=== PATIENT | female | born 1970 | race Two or more races ===

== ENCOUNTER 2018-03-12 18:52 | Emergency (ER) | payer OTHER ==
[2018-03-12] MEDS ORDERED: TDAP ADULT 0.5 ML INJ (BOOSTRIX) IM ONE (19:04)
--- NOTE | 2018-03-12 19:04 | EDPHY ---
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 She has no sensation distally. Occurred shortly prior to arrival PHYSICAL EXAM (Prior to examination, patient consented to physical exam, hands were washed and my usual and customary physical exam procedures followed) 1) GENERAL: Well-developed, well-nourished, alert and oriented. Appears to be in no acute distress. 2) HEAD: Normocephalic 3) HEENT: sclera anicteric 4) LUNGS: Breathing comfortably. 5) SKIN: On the left index finger distal phalanx she has 2, 1 cm discrete transverse lacerations. No signs of infection. Negative kanavel. 6) MUSCULOSKELETAL: FDP FDS intact 7) NEUROLOGIC: No 2 point discrimination distally, no sensation distal. Smoking Status: Never smoked Constitutional: Initial Vital Signs Temperature (C) 36.7 C 03/12/18 18:56 Heart Rate 81 03/12/18 18:56 Respiratory Rate 16 03/12/18 18:56 Blood Pressure 144/96 H 03/12/18 18:56 O2 Sat (%) 96 03/12/18 18:56 O2 Delivery Mode Room Air Allergies/Adverse Reactions: acetaminophen [From Percocet] Allergy (Verified 03/12/18 18:56) oxycodone [From Percocet] Allergy (Verified 03/12/18 18:56) Home Medications: Medication Instructions Recorded Levothyroxine [Synthroid 50 mcg 50 mcg PO DAILY06 12/31/11 (RX)] MDM/Departure - MDM Procedures: Procedure: Laceration repair. I was requested by to perform wound closure I explained the indications, risks and benefits for both laceration repair and anesthetic administration. Verbal consent was obtained from the patient and parent. The laceration on the left index finger was anesthetized using 0.5% bupivicaine without epinephrine digital nerve block. After anesthetic administered the patient was observed for a period of time and had no apparent adverse effects. The wound was cleaned, prepped, draped in normal sterile fashion and explored to its base. No foreign body seen, no foreign bodies palpated. There were no deep structures involved. No tendon injury was identified. The wound was repaired with 3 simple interrupted 5 O Prolene suture. The wound repair was simple. The procedure was performed by myself. Patient has been informed that scarring will occur, although efforts have been made to minimize this. Medications Given: Discontinued Medications Diphtheria/Tetanus/Acell Pertussis (Boostrix) 0.5 ml IM .ONCE ONE Stop: 03/12/18 19:05 Last Admin: 03/12/18 19:21 Dose: 0.5 ml ED Course/Re-evaluation: Primary wound closure in the emergency department. She has no decreased sensation distally. Recommend follow up with work comp provider and also given hand surgery follow-up information. Usual he customary wound precautions and instructions provided. No signs of infection at this time. I saw this patient independently based on established practice protocols. Care of patient under supervision of secondary supervising physician Dr Saldaña . - Depart Disposition: Home, Routine, Self-Care Clinical Impression: Laceration of left index finger Qualifiers: Encounter type: initial encounter Damage to nail status: without damage Foreign body presence: without foreign body Qualified Code(s): S61.211A - Laceration without foreign body of left index finger without damage to nail, initial encounter Condition: Good Instructions: Laceration (ED), Care For Your Stitches (ED) Additional Instructions: Return to the ER if you develop redness, swelling, discharge, warmth to the wound, red streaks going up your arm, or any other symptoms that concern you. Stand Alone Forms: Work Comp Follow Up Referrals: Chacorta Shipman MD [Medical Doctor] - As per Instructions Follow-up, with your work comp provider in 2 days [Other] - As per Instructions
[2018-03-12 20:19] VITALS: BP 140/86
== END 2018-03-12 20:19 | disposition home or self-care (01) ==
PROC: 0HQGXZZ Repair Left Hand Skin, External Approach (ICD-10-PCS; principal; 2018-03-12)
DX: S61.211A Laceration without foreign body of left index finger without damage to nail, initial encounter (principal); Z23 Encounter for immunization; W29.0XXA Contact with powered kitchen appliance, initial encounter; Y99.0 Civilian activity done for income or pay; Y93.89 Activity, other specified